=== PATIENT | male | born 1995 | race American Indian/Alaskan Native ===

== ENCOUNTER 2018-05-26 13:18 | Emergency (ER) | payer OTHER ==
[2018-05-26 13:29] VITALS: BP 154/91
[2018-05-26] MEDS ORDERED: NORCO 5/325 PO ONE (13:59)
[2018-05-26] MEDS ORDERED: ZOFRAN ODT PO ONE (13:59)
[2018-05-26] MEDS ORDERED: IBUPROFEN PO ONE (13:59)
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
== END 2018-05-26 14:12 | disposition home or self-care (01) ==
LOC: ED 13:18
DX: S16.1XXA Strain of muscle, fascia and tendon at neck level, initial encounter (principal); S39.012A Strain of muscle, fascia and tendon of lower back, initial encounter; V49.49XA Driver injured in collision with other motor vehicles in traffic accident, initial encounter; Y93.89 Activity, other specified; Y92.410 Unspecified street and highway as the place of occurrence of the external cause; Y99.8 Other external cause status
CPT/HCPCS: 99282; Q0162